=== PATIENT | male | born 1990 | race Two or more races ===

== ENCOUNTER 2018-05-07 22:22 | Emergency (ER) | payer SELFPAY | END 2018-05-07 23:30 | disposition home or self-care (01) | LOC: ER 23:30 | DX: S00.06XA Insect bite (nonvenomous) of scalp, initial encounter (principal); F41.9 Anxiety disorder, unspecified; I10 Essential (primary) hypertension; W57.XXXA Bitten or stung by nonvenomous insect and other nonvenomous arthropods, initial encounter; Y93.89 Activity, other specified; Y92.89 Other specified places as the place of occurrence of the external cause; Y99.8 Other external cause status | CPT/HCPCS: 99283 ==